=== PATIENT | female | born 1990 | race Caucasian/White ===

== ENCOUNTER 2017-11-24 12:30 | Emergency (ER) | payer SELFPAY ==
[~2017-11-24] VITALS: Ht 162.6 cm; Wt 73.5 kg
[2017-11-24 12:39] VITALS: BP 134/89
--- NOTE | 2017-11-24 12:59 | NUR ---
PT AMBULATED TO ER BED 11
--- NOTE | 2017-11-24 13:00 | NUR ---
ASSUMED CARE OF PT AT THIS TIME. C/O FEVER AND BENNETT X 4 DAYS. NO N/V/D. AAOX4 WITH EVEN AND STEADY GAIT; LUNGS CLEAR BL; HR EVEN AND REGULAR; PT DENIES ANY CP, SOB, OR COUGH AT THIS TIME; PATIENT STATES PAIN OF 8/10; VSS; PATIENT POSITIONED FOR COMFORT; HOB ELEVATED; BEDRAILS UP X2; BED DOWN. ER MD MADE AWARE OF PT STATUS. WILL CONTINUE TO MONITOR.
[2017-11-24] MEDS ORDERED: IBUPROFEN 800 MG TAB PO ONE (13:05)
[2017-11-24 13:25] VITALS: BP 134/89
--- NOTE | 2017-11-24 13:25 | NUR ---
Patient discharged with v/s stable. Written and verbal after care instructions given and explained. Patient alert, oriented and verbalized understanding of instructions. Ambulatory with steady gait. All questions addressed prior to discharge. ID band removed. Patient advised to follow up with PMD. Rx of NAPROXEN AND CIPRO given. Patient educated on indication of medication including possible reaction and side effects. Opportunity to ask questions provided and answered.
[2017-11-24 13:43] LABS: BILIRUBIN,URINE NEGATIVE (NEGATIVE); BLOOD, URINE 1+ (NEGATIVE); COLOR,URINE YELLOW (YELLOW); LEUKOCYTE ESTERASE ,URINE 3+ (NEGATIVE); NITRITE, URINE POSITIVE (NEGATIVE); UGLUCOSE NEGATIVE (NEGATIVE)
[2017-11-24 13:45] LABS: APPEARANCE,URINE HAZY (CLEAR)
[2017-11-24 13:55] LABS: RBC,URINE 3-10 (FEW) /HPF (0-5); WBC,URINE 60-80 /HPF (0-5)
== END 2017-11-24 13:25 | disposition home or self-care (01) ==
LOC: MED 12:30
DX: N39.0 Urinary tract infection, site not specified (principal)
CPT/HCPCS: 81001; 81025; 87086; 87186; 99284